=== PATIENT | male | born 1960 | race Hispanic/Latino ===

== ENCOUNTER 2019-08-25 13:01 | Emergency (ER) | payer SELFPAY ==
[~2019-08-25] VITALS: Ht 170.2 cm; Wt 94.1 kg
[2019-08-25] MEDS ORDERED: TETANUS/DIPHTHERIA TOX ADULT 0.5 ML SYR IM ONE (13:15)
--- NOTE | 2019-08-25 13:58 | Diagnostic Imaging Report ---
EXAMINATION: HAND 2 VIEW LT - HOPD INDICATION: Trauma COMPARISON: None FINDINGS: No acute fracture or dislocation. Small ossific densities at the anterior lateral wrist may be related to remote trauma. Generalized soft tissue swelling. IMPRESSION: No definite acute osseous injury. Generalized soft tissue swelling. Signed by: Elizabeth Win MD on 08/25/2019 1:54 PM
[2019-08-25] MEDS ORDERED: TETANUS/DIPHTHERIA TOX ADULT 0.5 ML SYR ONE (14:02)
--- NOTE | 2019-08-25 14:12 | Emergency Department Note ---
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 Pt is holding pressure to the hand to control the bleeding, pt does not know when his last tetanus shot was. . Historian: Patient Arrival Mode: Car Onset (how long ago): hour(s) (2) Location: left hand Quality: sharp Radiation: Denies non-radiation, Denies back, Denies neck, Denies extremity, Denies abdomen, Denies periumbilical, Denies flank, Denies proximal, Denies distal, Denies other Severity: moderate Duration (how long): hour(s) (2) Timing of current episode: constant Progression: unchanged Chronicity: new Context: Denies recent illness, Denies recent surgery, Denies recent immobilization, Denies recent travel, Denies trauma/injury, Denies new medications, Denies hx of DVT/PE, Denies non-compliance w/ medications, Denies other Relieving factors: none Exacerbating factors: none Associated symptoms: Reports denies other symptoms Treatments prior to arrival: none Past Medical/Family History Physician Review I have reviewed the patient's past medical and family history. Any updates have been documented here. Past Medical History Recent Fever: No Clinical Suspicion of Infectio: No New/Unexplained Change in Ment: No Past Medical History: Hypertension, Diabetes, Cancer Other Medical History: bone cancer prostate cancer Past Surgical History: None Social History Smoking Cessation: Current every day smoker Counseling Performed: Yes Alcohol Use: Occasional Any Illegal Drug Use: No TB Exposure/Symptoms: No Physically hurt or threatened: No Family History Family history of heart diseas: Yes Other Any Pre-Existing Lines (PICC,: No Is patient up to date on immun: Yes Last Flu: UTD Last Pneumovax: none Review of Systems Review of Systems Constitutional: Reports no symptoms EENTM: Reports no symptoms Cardiovascular: Reports no symptoms Respiratory: Reports no symptoms Gastrointestinal: Reports no symptoms Genitourinary: Reports no symptoms Musculoskeletal: Reports as per HPI Integumentary: Reports no symptoms Neurological: Reports no symptoms Psychological: Reports no symptoms Endocrine: Reports no symptoms Hematological/Lymphatic: Reports no symptoms Physical Exam Related Data Allergies: Coded Allergies: No Known Allergies (Unverified , 08/25/19) Triage Vital Signs Vital Signs Date Time Temp Pulse Resp B/P (MAP) Pulse Ox O2 Delivery O2 Flow Rate FiO2 08/25/19 13:05 97.4 77 18 142/81 97 Vital signs reviewed: Yes Physical Exam CONSTITUTIONAL Constitutional: Present well-developed, Present well-nourished HENT HENT: Present normocephalic, Present atraumatic, Present oropharynx clear/moist, Present nose normal HENT L/R: Present left ext ear normal, Present right ext ear normal EYES Eyes: Reports PERRL, Reports conjunctivae normal NECK Neck: Present ROM normal PULMONARY Pulmonary: Present effort normal, Present breath sounds normal CARDIOVASCULAR Cardiovascular: Present regular rhythm, Present heart sounds normal, Present capillary refill normal, Present normal rate GASTROINTESTINAL Abdominal: Present soft, Present nontender, Present bowel sounds normal GENITOURINARY Genitourinary: Present exam deferred SKIN Skin: Present warm, Present dry, Present other (9 cl laceration) MUSCULOSKELETAL Musculoskeletal: Present ROM normal NEUROLOGICAL Neurological: Present alert, Present oriented x 3, Present no gross motor or sensory deficits PSYCHOLOGICAL Psychological: Present mood/affect normal, Present judgement normal Results Imaging Imaging results reviewed: Yes Assessment & Plan Medical Decision Making MDM laceration,,,tendon injury Reassessment Reassessment time: 14:11 Reassessment better Assessment & Plan Final Impression: (1) Laceration of left hand (2) Acute pain due to trauma Depart Disposition: HOME, SELF-CARE Last Vital Signs Date Time Temp Pulse Resp B/P (MAP) Pulse Ox O2 Delivery O2 Flow Rate FiO2 08/25/19 13:05 97.4 77 18 142/81 97 Medications in the ED Tetanus/ Diphtheria Toxoids 0.5 ml ONCE ONCE IM Last administered on 08/25/19at 13:57; Admin Dose 0.5 ML; Start 08/25/19 at 13:15; Stop 08/25/19 at 13:16; Status DC Tetanus/ Diphtheria Toxoids 0.5 ml STK-MED ONCE .ROUTE ; Start 08/25/19 at 14:02; Stop 08/25/19 at 13:57; Status DC SUNNY AGUAYO MD Aug 25, 2019 14:12
[2019-08-25 14:32] VITALS: BP 113/59
== END 2019-08-25 14:29 | disposition home or self-care (01) ==
LOC: FSED 13:01
DX: S61.412A Laceration without foreign body of left hand, initial encounter (principal); W29.8XXA Contact with other powered hand tools and household machinery, initial encounter; Y99.0 Civilian activity done for income or pay; I10 Essential (primary) hypertension; E11.9 Type 2 diabetes mellitus without complications; Z85.830 Personal history of malignant neoplasm of bone; F17.210 Nicotine dependence, cigarettes, uncomplicated
CPT/HCPCS: 90471; 90714; 96372; 99283

== ENCOUNTER 2019-09-06 07:38 | Emergency (ER) | payer SELFPAY ==
[~2019-09-06] VITALS: Ht 157.5 cm; Wt 92.5 kg
--- NOTE | 2019-09-06 08:39 | Emergency Department Note ---
History of Present Illnes History of Present Illness Chief Complaint: Suture Removal History of Present Illness This is a 59 year old male who is here for suture removal of stitches in the top of his left hand that were placed here on 08/25/2019, following an accident with a edge grinder machine. . Historian: Patient Arrival Mode: Car Management Analyst Required: No Onset (how long ago): day(s) (12) Location: top of left hand Quality: no pain Radiation: Denies non-radiation Severity: mild Onset quality: sudden Duration (how long): day(s) (12) Timing of current episode: constant Progression: partially resolved Chronicity: new Context: Reports trauma/injury (on - cut hand with a edge grinder machine) Relieving factors: none Exacerbating factors: none Associated symptoms: Reports denies other symptoms (likely will not weeks) Treatments prior to arrival: none Past Medical/Family History Physician Review I have reviewed the patient's past medical and family history. Any updates have been documented here. Past Medical History Recent Fever: No Clinical Suspicion of Infectio: No New/Unexplained Change in Ment: No Past Medical History: Hypertension, Diabetes, Cancer Other Medical History: bone cancer prostate cancer Past Surgical History: None Review of Systems Review of Systems Review of other systems: All other systems negative Physical Exam Related Data Allergies: Coded Allergies: No Known Allergies (Unverified , 08/25/19) Vital signs reviewed: Yes Physical Exam CONSTITUTIONAL Constitutional: Present well-developed, Present well-nourished HENT HENT: Present normocephalic, Present atraumatic, Present oropharynx clear/moist, Present nose normal HENT L/R: Present left ext ear normal, Present right ext ear normal EYES Eyes: Reports PERRL, Reports conjunctivae normal NECK Neck: Present ROM normal PULMONARY CARDIOVASCULAR GASTROINTESTINAL GENITOURINARY SKIN Skin: Present warm, Present dry, Present other (healing laceration of the top of the left hand, partially dehisced, near the area between the index finger and thumb (due to patient opening and closing his hand frequently.) MUSCULOSKELETAL NEUROLOGICAL Neurological: Present alert, Present oriented x 3 PSYCHOLOGICAL Psychological: Present mood/affect normal Procedures Procedures Procedure: Suture Removal - 5 sutures removed from the top of the left hand. Several sutures were missing. Wound partially dehisced, with no drainage, erythema, tenderness or signs of infection. Pt admits to opening and closing his left hand "a lot" which likely broke the stitches open and has impeded the wound from closing completely. Will place him in a cock-up splint, to try an immobilize. Steri-strips applied to the wound. Assessment & Plan Medical Decision Making MDM Follow-up with any signs of infection, including redness, warmth, drainage, or tenderness from the wound site. Keep the Steri-Strips in place until they fall off on their own. Keep the left hand clean and dry for at least 24-48 hours, to try and allow for wound healing. Wear the cock-up splint, especially at work, until the wound is fully closed. Assessment & Plan Final Impression: (1) Encounter for removal of sutures (2) Laceration of left hand Depart Disposition: HOME, SELF-CARE ARDEN WHEAT MD Sep 06, 2019 08:39
--- NOTE | 2019-09-06 09:17 | NUR ---
pt unable to tolorate spiky perform splint. hand splint made out of ortho glass, pt tolorated well and stated feels much better, good cap refill noted sensation intact.
== END 2019-09-06 09:35 | disposition home or self-care (01) ==
LOC: FSED 08:25
DX: Z48.02 Encounter for removal of sutures (principal)
CPT/HCPCS: 99283